=== PATIENT | female | born 1980 | race Hispanic/Latino ===

== ENCOUNTER → 2017-09-22 | Outpatient (CLI) | payer OTHER ==
--- NOTE | 2017-09-22 16:30 | Diagnostic Imaging Report ---
PROCEDURE: CT ABDOMEN AND PELVIS WITHOUT CONTRAST TECHNIQUE: The abdomen and pelvis were scanned utilizing a multidetector helical scanner from the diaphragm to the lesser trochanter after the oral administration of water. No IV contrast was administered because of stone protocol. Coronal and sagittal multiplanar reformations were obtained. DLP: 236.07 mGy-cm COMPARISON: None. INDICATIONS: RENAL STONES FINDINGS: ABSENCE OF INTRAVENOUS CONTRAST DECREASES SENSITIVITY FOR DETECTION OF FOCAL LESIONS AND VASCULAR PATHOLOGY. LOWER THORAX: Normal. HEPATOBILIARY: No focal hepatic lesions. No biliary ductal dilatation. SPLEEN: No splenomegaly. PANCREAS: No focal masses or ductal dilatation. ADRENALS: No adrenal nodules. KIDNEYS/URETERS: No hydronephrosis, stones, or solid mass lesions. PELVIC ORGANS/BLADDER: Uterus is absent. No adnexal masses. PERITONEUM / RETROPERITONEUM: No free air or fluid. LYMPH NODES: No lymphadenopathy. VESSELS: Unremarkable. GI TRACT: No distention or wall thickening. BONES AND SOFT TISSUES: Oval circumscribed 2.1 x 1.6 cm soft tissue attenuating lesion in the medial left breast. No acute or aggressive osseus lesions. Punctate sclerotic focus in the posterior right inferior pubic ramus likely represents a bone island. IMPRESSION: No renal calculi identified. Oval circumscribed 2.1 cm lesion in the medial left breast is indeterminate. Recommend correlation with breast ultrasound and/or diagnostic mammogram. Dictated by: Jorge Mclaughlin M.D. on 09/22/2017 at 16:35 Electronically approved by: Jorge Mclaughlin M.D. on 09/22/2017 at 16:35
== END ==
LOC: CT 15:23
PROVIDERS: ATTEND Family Medicine
DX: N23 Unspecified renal colic (principal)
CPT/HCPCS: 74176

== ENCOUNTER → 2020-11-06 | Outpatient (CLI) | payer OTHER | LOC: US 08:54 | PROVIDERS: ATTEND Family Medicine | DX: E04.9 Nontoxic goiter, unspecified (principal) | CPT/HCPCS: 76536 ==